=== PATIENT | female | born 1970 | race Caucasian/White ===

== ENCOUNTER 2017-06-03 18:34 | Emergency (ER) | payer OTHER ==
[2017-06-03] MEDS ORDERED: Morphine INJ* 2 MG/ML 1 ML SYRINGE IV ONE ×2 (18:55→23:03)
[2017-06-03] MEDS ORDERED: Ondansetron INJ* 2 MG/ML VIAL ONE (19:02)
[2017-06-03] MEDS ORDERED: Ondansetron INJ* 2 MG/ML VIAL IV ONE ×2 (19:02→20:46)
--- NOTE | 2017-06-03 19:50 | RAD ---
Indication: RIGHT ankle and leg pain post fall from horse. Comparison: No relevant prior exams available on the [facility] PACS for comparison. Technique: AP and crosstable lateral views RIGHT lower leg. AP, lateral, and oblique views RIGHT ankle. Report: Oblique coronal oriented fracture through the lateral malleolus terminating inferiorly at the level of the ankle mortise. Approximate 1 cortex width lateral displacement. Increased medial joint space at the talocrural joint. Posterior lateral tibial plafond and fracture with approximate 2 mm cephalad and 5 mm posterior displacement. Negative for more proximal fibula or tibia fracture on the lower leg exam. Soft tissue swelling about the lower leg and ankle most marked over the medial and lateral malleoli. IMPRESSION: Fuller type B 3 fracture pattern with lateral malleolus, posterolateral tibial plafond and, and stigmata of deltoid ligament tear. Significant medial talocrural joint space widening. Negative for more proximal tibia or fibula fracture.
--- NOTE | 2017-06-03 19:50 | RAD ---
Indication: RIGHT ankle and leg pain post fall from horse. Comparison: No relevant prior exams available on the [facility] PACS for comparison. Technique: AP and crosstable lateral views RIGHT lower leg. AP, lateral, and oblique views RIGHT ankle. Report: Oblique coronal oriented fracture through the lateral malleolus terminating inferiorly at the level of the ankle mortise. Approximate 1 cortex width lateral displacement. Increased medial joint space at the talocrural joint. Posterior lateral tibial plafond and fracture with approximate 2 mm cephalad and 5 mm posterior displacement. Negative for more proximal fibula or tibia fracture on the lower leg exam. Soft tissue swelling about the lower leg and ankle most marked over the medial and lateral malleoli. IMPRESSION: Fuller type B 3 fracture pattern with lateral malleolus, posterolateral tibial plafond and, and stigmata of deltoid ligament tear. Significant medial talocrural joint space widening. Negative for more proximal tibia or fibula fracture.
[2017-06-03] MEDS ORDERED: Morphine INJ* 4 MG/ML 1 ML SYRINGE IV ONE (20:45)
--- NOTE | 2017-06-03 22:06 | RAD ---
Indication: Post reduction Fuller type B 3 ankle injury. Comparison: No relevant prior exams available on the [facility] for comparison. Technique: AP, mortise, and lateral views RIGHT ankle. REPORT AND IMPRESSION: Overlying splint limits image quality. Persistent significant medial joint space widening. Unchanged alignment at the lateral malleolus and posterolateral tibial plafond fractures.
--- NOTE | 2017-06-03 22:08 | RAD ---
Indication: Post reduction Fuller type B 3 ankle injury. Comparison: Prereduction exam of the same date. Technique: AP and crosstable lateral views RIGHT lower leg. REPORT AND IMPRESSION: Interpreted in correlation with the post reduction ankle exam. No significant change in malalignment at the lateral malleolus and posterolateral tibial plafond fractures and talocrural joint compared with the prereduction exam. No more proximal fracture of the tibia or fibula evident.
[2017-06-03] MEDS ORDERED: Lidocaine 1% INJ* 10 MG/ML 30 ML SDV ONE (22:48)
[2017-06-03] MEDS ORDERED: Lidocaine 1%* 5 ML VIAL INJ ONE (22:49)
[2017-06-03] MEDS ORDERED: Morphine INJ* 4 MG/ML 1 ML SYRINGE ONE (23:05)
--- NOTE | 2017-06-03 23:54 | ED ---
Lower Extremity - HPI Summary HPI Summary: Patient presents to the ED with CC of right ankle and foot pain after jumping from a horse and landing on her right foot. She is unable to ambulate. NV exam intact at arrival to ED. There is ecchymosis over the medial ankle with medial and lateral ankle swelling. She notes to some numbness and tingling. Denies hitting her head or LOC. Denies other symptoms at this time. Pain is 7/ 10, worse with movement and better with rest and ice. Thorough physical exam was performed, focusing on ankle special tests. Pain on palpation over medial and lateral aspect and superior aspect of ankle over ATFL and deltoid ligaments. Deltoid ligament with crepitus. Due to patient pain around injury, physical exam was limited. Unable to perform anterior drawer test or talar tilt test d/t pain. Almaguer test negative. Limited ROM. Dorsiflexion, great toe extension and plantar flexion intact however limited. Pain on palpation over medial or lateral lower extremity. No pain with knee flexion. Pulses intact bilaterally. No temperature change or pallor noted bilaterally. Ecchymosis and swelling noted. No lesion or disruption of skin is seen. Unable to bear weight. - History of Current Complaint Chief Complaint: EDExtremityLower Stated Complaint: RT ANKLE INJURY Time Seen by Provider: 06/03/17 18:50 Hx Obtained From: Patient Mechanism Of Injury: Blunt Trauma Onset of Pain: Immediate Onset/Duration: Hours Severity Initially: Moderate Severity Currently: Moderate Pain Intensity: 8 Pain Scale Used: 0-10 Numeric Timing: Constant Location: Is Discrete @ - right medial and lateral ankle pain Associated Signs And Symptoms: Positive: Bruising Aggravating Factor(s): Standing, Ambulation, Movement, Weight Bearing Alleviating Factor(s): Rest, Elevation Able to Bear Weight: No - Risk Factors Gout Risk Factors: Negative DVT Risk Factors: Negative Septic Arthritis Risk Factor: Negative - Allergies/Home Medications Allergies/Adverse Reactions: Allergies Allergy/AdvReac Type Severity Reaction Status Date / Time Shellfish Allergy Allergy Severe ANAPHYLACTI Verified 08/17/14 11:06 C Iodine Allergy SEVERE Verified 08/17/14 11:06 ALLERGY TO SHELLFISH PMH/Surg Hx/FS Hx/Imm Hx Previously Healthy: Yes Respiratory History: Reports: Other Respiratory Problems/Disorders - HX OF BRONCHOSPASMS History: Reports: Hx Kidney Infection - HX OF NONE RECENTLY, Other Problems/Disorders - HX OF BLADDER INFECTIONS- NONE RECENTLY Musculoskeletal History: Reports: Hx Bursitis - OCCASIONALLY IN LEFT HIP Sensory History: Reports: Hx Contacts or Glasses - INSTRUCTS GIVEN Denies: Hx Hearing Aid Opthamlomology History: Reports: Hx Contacts or Glasses - INSTRUCTS GIVEN Neurological History: Reports: Hx Migraine - HX OF- NONE RECENTLY Psychiatric History: Reports: Hx Depression - ON MEDICATION FOR - Cancer History Hx Chemotherapy: No Hx Radiation Therapy: No - Surgical History Surgery Procedure, Year, and Place: 2002 LEFT maxillary nasal fistula-[facility] [place]. 2005 - RIGHT KNEE ARTHROSCOPY-[facility] [place]. 2012-BONE GRAFT JAW-. 2 GUM GRAFTS DONE Hx Anesthesia Reactions: No - Immunization History Hx Pertussis Vaccination: No Immunizations Up to Date: Unable to Obtain/Confirm Infectious Disease History: No Infectious Disease History: Denies: Traveled Outside the [place] in Last 30 Days - Social History Occupation: Employed Full-time Lives: With Family Alcohol Use: Occasionally Hx Substance Use: No Substance Use Type: Reports: None Hx Tobacco Use: No Smoking Status (MU): Never Smoked Tobacco Review of Systems Constitutional: Negative Eyes: Negative Cardiovascular: Negative Respiratory: Negative Genitourinary: Negative Positive: no symptoms reported, see HPI Positive: Arthralgia, Myalgia - right ankle pain Positive: Bruising Neurological: Negative All Other Systems Reviewed And Are Negative: Yes Physical Exam Triage Information Reviewed: Yes Vital Signs On Initial Exam: Initial Vitals Temp Pulse Resp BP Pulse Ox 97.9 F 75 18 118/67 100 06/03/17 18:41 06/03/17 18:41 06/03/17 18:41 06/03/17 18:41 06/03/17 18:41 Completion Of Physical Exam Limited Due To: Dementia Appearance: Positive: Well-Appearing, Well-Nourished Skin: Positive: Warm, Skin Color Reflects Adequate Perfusion, Other - ecchymosis over medial ankle Head/Face: Positive: Normal Head/Face Inspection Eyes: Positive: EOMI, SUZI, Conjunctiva Clear Neck: Positive: Supple, No Lymphadenopathy Respiratory/Lung Sounds: Positive: Clear to Auscultation, Breath Sounds Present Cardiovascular: Positive: Normal, RRR, Pulses are Symmetrical in both Upper and Lower Extremities Musculoskeletal: Positive: Pain @ - medial and lateral ankle pain Neurological: Positive: Sensory/Motor Intact, Alert, Oriented to Person Place, Time, Speech Normal Psychiatric: Positive: Normal Diagnostics - Vital Signs Vital Signs Temp Pulse Resp BP Pulse Ox 06/03/17 23:05 22 06/03/17 20:51 18 06/03/17 18:59 20 06/03/17 18:41 97.9 F 75 18 118/67 100 - Laboratory Lab Statement: Any lab studies that have been ordered have been reviewed, and results considered in the medical decision making process. Lower Extremity Course/Dx - Course Course Of Treatment: Patient evaluated for acute injury of the right ankle. IV obtained. Morphine 4mg given. Xray shows: IMPRESSION: Fuller type B 3 fracture pattern with lateral malleolus, posterolateral tibial plafond and, and stigmata of deltoid ligament tear. Significant medial talocrural joint. space widening. Negative for more proximal tibia or fibula fracture. Upon attempt at mild reduction of the talocrural joint with external rotation of the hip, inversion of the right ankle while pulling anterior on the great toe, a plaster splint was placed. Post reduction films showed no changes of the widening of the joint. Spoke with Dr. Cr who agrees to come to ED. Dr. Cr was able to inject 10cc Lidocaine into the joint space for local anesthetic, she was given 4mg IV morphine just prior to reduction. Plaster splint was placed by Dr. Cr. Post reduction films ordered: CT. She will follow up next week. Crutches given. Pain management given. - Diagnoses Differential Diagnosis/HQI/PQRI: Positive: Contusion, Fracture (Closed), Fracture (Open) Provider Diagnoses: Ankle fracture Discharge - Discharge Plan Condition: Stable Disposition: HOME Prescriptions: oxyCODONE/Acetamin 10/325(NF) [Percocet 10/325 (NF)] 1 tab PO Q6H #16 tab MDD 4 Patient Education Materials: Ankle Fracture (ED) Referrals: Ramon Cr MD [Medical Doctor] - Noemi Parra MD [Primary Care Provider] - Additional Instructions: Follow up with ortho next week Call tomorrow for appt Crutches given for ambulation Keep elevated Ibuprofen 600mg three times daily for pain For breakthrough pain, you may take the percoset on opposite schedule of the ibuprofen
[2017-06-04] MEDS ORDERED: HYDROcodone/ACETAMIN 5-325 MG* 1 TAB PO ONE (00:33)
[2017-06-04 01:36] VITALS: BP 141/74
--- NOTE | 2017-06-04 01:55 | CONS ---
CONSULTATION REPORT: DATE OF CONSULTATION: 06/03/17 - EMERGENCY DEPT REASON FOR CONSULT: Right ankle injury. 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 on 06/03/17. The patient fell off the horse, injured her ankle, sustained no other injuries, and presented to the [facility] Emergency Department with a complaint of pain, swelling, and deformity of the right ankle. X-rays demonstrated a fracture, both of the lateral malleolus and the posterior malleolus, with a lateral talar shift. ER staff reduced the ankle and placed a splint. Post-reduction film showed some residual lateral talar translation. I was consulted regarding the fracture. The patient has received IV pain medication. Is in some discomfort. No prior history of right ankle injuries. PAST MEDICAL HISTORY: Question of depression. PAST SURGICAL HISTORY: Right knee arthroscopy with excision of medial plica, oral surgery, sinus surgeries. MEDICATIONS: 1. Lexapro. 2. Oral contraceptive medication. ALLERGIES: ERYTHROMYCIN (reaction not stated). REVIEW OF SYSTEMS: No fever, sweats, or chills. No chest pain. No shortness of breath. No heart palpitations. No other joint pain. No loss of consciousness or head or neck trauma with fall. PHYSICAL EXAM: Vitals: Temperature 97.9 degrees Fahrenheit, pulse 75, blood pressure 118/67, O2 sat 100% on room air, respiratory rate 18. In no acute distress. Alert and oriented x3. Appropriate mood and affect. Appropriate dress and hygiene. Gait not assessed as the patient is on a stretcher. Well-coordinated bilateral upper and lower extremities. Right ankle shows significant soft tissue swelling, moderate in grade globally about the ankle. There is barely wrinkling about the medial and lateral ankle. Neurovascularly intact distally. Tenderness to palpation about the ankle globally, but specifically about the lateral malleolus and posterior ankle. Did not test strength or passive range of motion because this was clearly causing pain, with either of those maneuvering or testings. DIAGNOSTIC STUDIES/LAB DATA: Imaging: Three x-ray views of the right ankle were reviewed, both pre and post-original reduction. This showed lateral malleolus fracture ending distally at the level of the tibiotalar joint, oblique. There is also a clear posterior malleolus fracture fragment. It appears to involve only approximately a 1 to 2 mm of the joint surface posteriorly, but the fragment may be larger than that as it appears to be posterolateral and not straight posterior. There is some minimal superiorization and posteriorization of that fracture fragment. The medial clear space was proximally 8 mm both pre and post-reduction. ASSESSMENT: Right ankle fracture, displaced, lateral malleolus and posterior malleolus. PLAN: 1. To try to attempt to obtain an improved ankle reduction to reduce soft tissue swelling and expedite the timing of surgery, decided to come in to attempt to reduction. 2. PROCEDURE: Closed reduction/manipulation of the ankle fracture and splint placement. Verbal consent, sterile technique, tolerated well. 6 cc of lidocaine, 1%, without epinephrine, placed into the ankle joint. We then returned 10 minutes later. Performed ankle reduction maneuver and placed a posterior splint with sugar-tong medial and lateral. 3. Obtain post-reduction radiographs. They are pending. 4. Instructions for the patient to use crutches, be nonweightbearing, use ice and elevate the ankle constantly. 5. The patient will follow up with me in the office next week, sometime on Wednesday or Wednesday, the or 09 of June. We will discuss timing of surgery. 6. The patient knows she will require ankle fracture open reduction internal fixation surgery. 7. As the patient's posterior malleolus fracture appears posterolateral and she is a younger patient, I am going to obtain a CT scan of the right ankle to better visualize that posterior fracture fragment. This is on the off chance that it would benefit from fracture fixation posteriorly. [id number]/[facility] #: [id number] [facility]
--- NOTE | 2017-06-04 07:59 | RAD ---
INDICATION: Traumatic fracture of the right ankle, status post external reduction. COMPARISON: Comparison is made with prior x-ray studies of the right ankle from June 03, 2017. TECHNIQUE: Contiguous axial sections were obtained of the right ankle. Images were reconstructed in the sagittal and coronal planes. FINDINGS: There is diffuse soft tissue swelling present. The patient is in a plaster splint. There is an oblique slightly comminuted fracture of the distal metaphysis of the fibula extending to the ankle joint. The major distal fragment is displaced posteriorly approximately 1 cortical diameter and laterally approximately 1 cortical diameter. There is a fracture of the posterior malleolus which extends to the articular margin. This fracture involves approximately 15% of the articular surface. The fracture fragment is minimally distracted. There is widening of the medial ankle mortise. IMPRESSION: 1. OBLIQUE SLIGHTLY DISPLACED INTRA-ARTICULAR FRACTURE OF THE DISTAL FIBULA. 2. MINIMALLY DISPLACED INTRA-ARTICULAR FRACTURE OF THE POSTERIOR MALLEOLUS. 3. WIDENING OF THE MEDIAL ANKLE MORTISE.
== END 2017-06-04 01:34 | disposition home or self-care (01) ==
LOC: ED 18:34
DX: S82.891A Other fracture of right lower leg, initial encounter for closed fracture (principal); M79.671 Pain in right foot; W17.89XA Other fall from one level to another, initial encounter; Y93.52 Activity, horseback riding; Y92.89 Other specified places as the place of occurrence of the external cause
CPT/HCPCS: 96374; 96375; 99282; J2001; J2270; J2405

== ENCOUNTER 2017-06-14 10:40 | Day surgery (SDC) | payer OTHER ==
--- NOTE | 2017-06-09 14:21 | HP ---
PREOPERATIVE HISTORY AND PHYSICAL: DATE OF ADMISSION: 06/14/17 PROVIDER: Rodo Rod MD * (DICTATED BY SOLIS SERVIN) CHIEF COMPLAINT: Right ankle injury. HISTORY OF PRESENT ILLNESS: Ms. Jeffry Mccarty is a 46-year-old female who presents to the office with complaints of a right ankle injury that she sustained on 06/03/17. She states that she was riding her horse and the horse turned towards the right and the patient fell off towards the left. She states that she tried to hold on for a little bit and then ended up falling off, she tried landing on bilateral feet; however, the right ankle seemed to fold underneath her. She states that she noticed a deformity and swelling and pain in the ankle immediately, she was taken to [facility] Emergency Room where x-rays were obtained. She underwent close reduction of the ankle by Dr. Cr and was splinted. She also underwent a CT scan to further evaluate the fracture fragments. She was advised that surgical intervention would give her the best result for healing appropriately and she would like to proceed. PAST MEDICAL HISTORY: Asthma and depression. PAST SURGICAL HISTORY: Right knee arthroscopy in 2004, bone graft from her jaw in 2014, maxillofacial surgery in 2000 and 2015. She reports no complications with anesthesia with those procedures. CURRENT MEDICATIONS: 1. Lexapro 10 mg daily. 2. control pill daily. 3. Multivitamin daily. ALLERGIES: ERYTHROMYCIN, which causes rash. She is also allergic to LATEX. FAMILY HISTORY: Positive for skin cancer in her mother. Negative for diabetes , heart disease, or high blood pressure. SOCIAL HISTORY: She lives with her . 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 She denies tobacco use. She denies alcoholic beverages. She exercises regularly and enjoys horseback riding. REVIEW OF SYSTEMS: Constitutional: Negative for fevers, chills, or night sweats. HEENT: Negative for blurred or double vision, sore throat, runny nose, frequent nosebleeds or hearing changes. Cardiovascular: Negative for chest pain or heart palpitations. Respiratory: Negative for shortness of breath or cough. Gastrointestinal: Negative for nausea, vomiting, or diarrhea. Positive for constipation due to Percocet. Genitourinary: Negative for urinary tract infections or kidney stones. Musculoskeletal: Positive for chronic back pain and the right ankle fracture. Neurologic: Negative for dizziness, lightheadedness or peripheral neuropathy or weakness. Skin: Negative for rashes, lesions, lumps or sores. Endocrine: Negative for weight loss, weight gain or fatigue. Hematology: Positive for easy bleeding or bruising. Allergic : Positive for seasonal allergies and hay fever. Psychiatric: Positive for depression. PHYSICAL EXAMINATION GENERAL: She is a well-developed, well-nourished pleasant female in no acute distress at rest. She is alert and oriented x3, with appropriate mood and affect. VITAL SIGNS: The patient is 5 feet 9 inches, 240 pounds. Blood pressure 130/84 , temperature 98.1, pulse is 78. HEENT: Normocephalic and atraumatic. Hearing and vision are grossly intact. NECK: Her trachea is midline. RESPIRATORY: Lungs clear to auscultation bilaterally. No wheezes, rales, or rhonchi. CARDIOVASCULAR: Regular rate and rhythm. No murmurs, rubs or gallops. Normal S1 and S2. ABDOMEN: Soft, nondistended, nontender. Normal bowel sounds. EXTREMITIES: Exam of the right lower extremity, splint was taken down. Skin is intact without abrasions or open wounds. There is no fracture blistering apparent. There is moderate edema throughout the ankle and dorsum of the foot. There is ecchymosis at the medial and lateral aspects of the heel, plantar aspect of the medial arch. She is tender to palpation around the medial and lateral aspects of the ankle. She is nontender over the dorsal midfoot, Lisfranc joint and into the forefoot. She is also nontender at the proximal fibula. She is able to slightly flex and extend her MTP joints. Her sensation to light touch is intact. She has a 2+ dorsalis pedis pulse. IMAGING: CT scan of the right lower extremity was reviewed from [facility] and shows a displaced distal fibula fracture with widening of the ankle mortis. There is also a nondisplaced fracture of the posterior malleolus. IMPRESSION: Right ankle bimalleolar fracture. PLAN: The patient is to undergo right ankle open reduction and internal fixation by Dr. Rod on 06/14/17. The risks, benefits, and postoperative course were discussed with the patient at length and she would like to proceed. A prescription for oxycodone was sent to her pharmacy for postoperative pain. She is encouraged to elevate the foot frequently to help reduce swelling prior to surgery. We will follow up the patient on the postoperative day. SOLIS SERVIN [id number]/[facility] #: [id number] [facility]
[~2017-06-14 10:40] MED LIST: Buffered Lidocaine 0.9% SYRIN* 5 ML/SYR SYRINGE INTRADERM ONE; Buffered Lidocaine 0.9% SYRIN* 5 ML/SYR SYRINGE ONE; ceFAZolin 2 GM PREMIX (*) 50 ML IVPB ONE
[2017-06-14] MEDS ORDERED: fentaNYL* 50 MCG/ML 2 ML VIAL (100 MCG VIAL) ONE (11:15)
[2017-06-14] MEDS ORDERED: Midazolam* 1 MG/ML 2 ML VIAL (2 MG) ONE ×2 (11:16→12:24)
[2017-06-14] MEDS ORDERED: Bupivacaine 0.5% SDV PF* 30 ML VIAL ONE (11:56)
[2017-06-14] MEDS ORDERED: Chloroprocaine 2%* 20 ML VIAL ONE (12:04)
[2017-06-14] MEDS ORDERED: Propofol* 10 MG/ML 20 ML BTL IV PUSH ONE (12:44)
[2017-06-14] MEDS ORDERED: Dexamethasone IV* 4 MG/ML 1 ML (4 MG) ONE (12:44)
[2017-06-14] MEDS ORDERED: Famotidine IV* 10 MG/ML 2 ML (20 mg) ONE (12:44)
[2017-06-14] MEDS ORDERED: Ketorolac INJ* 30 MG/ML 1 ML VIAL ONE (12:44)
[2017-06-14] MEDS ORDERED: Lidocaine 2% PF * 5 ML VIAL ONE (12:44)
[2017-06-14] MEDS ORDERED: diPHENhydraMINE IV* 50 MG/ML 1 ml VIAL (BENADRYL) ONE (12:50)
[2017-06-14] MEDS ORDERED: HYDROmorphone INJ* 1 MG/ML CARPUJECT SYRINGE IV PRN (12:54)
[2017-06-14] MEDS ORDERED: Acetaminophen TAB* 325 MG PO PRN (12:54)
[2017-06-14] MEDS ORDERED: Levalbuterol 0.63MG/3ML NEB* UNIT OF USE INH PRN (12:54)
[2017-06-14] MEDS ORDERED: DiMENhydriNATE IV* 50 MG/ML VIAL IV PUSH PRN (12:54)
[2017-06-14] MEDS ORDERED: fentaNYL* 50 MCG/ML 2 ML VIAL (100 MCG VIAL) IV PRN (12:54)
[2017-06-14] MEDS ORDERED: Ondansetron INJ* 2 MG/ML VIAL IV PRN (12:54)
[2017-06-14] MEDS ORDERED: HYDROmorphone INJ* 1 MG/ML CARPUJECT SYRINGE ONE (13:38)
[2017-06-14] MEDS ORDERED: oxyCODONE/Acetamin 5/325 MG* TAB ONE (14:48)
[2017-06-14] MEDS: oxyCODONE/Acetamin 5/325 MG* TAB PO PRN ×2 (14:48→14:49)
[2017-06-14 15:24] VITALS: BP 135/79
--- NOTE | 2017-06-14 20:35 | RAD ---
INDICATION: Right ankle ORIF right ankle injury COMPARISONS: June 03, 2017 TECHNIQUE: Fluoroscopy was provided for a surgical procedure. Total fluoroscopy time is: 12 seconds FINDINGS: Spot images demonstrate internal fixation of the ankle IMPRESSION: FLUOROSCOPY WAS PROVIDED FOR A SURGICAL PROCEDURE CPT II Codes: 6045F
--- NOTE | 2017-06-15 08:41 | OP ---
DATE OF OPERATION: 06/14/17 [facility] DATE OF : 72 ATTENDING SURGEON: Rodo Rod MD LABORATORY ASST: Fifi Harrison PA-C. ANESTHESIOLOGIST: Dr. Silverio ANESTHESIA: Spinal PRE-OP DIAGNOSIS: Right fibular fracture, Fuller B displacement. POST-OP DIAGNOSIS: Right fibular fracture, Fuller B displacement with retained pin in the fibular canal. OPERATIVE PROCEDURE: ORIF right fibula with retrieval of broken K-wire. DESCRIPTION OF PROCEDURE: The patient was taken to the operating room where a longitudinal incision was made long the distal fibula. The reduction of the slightly comminuted Fuller B fracture was obtained with the crab claw clamp, and then we pinned this longitudinally with a C-wire. We then fashioned a 7-hole one-third tubular plate along the posterior aspect of the fibula. Back to front cortical screws were placed x2 through the plate with the fragment well reduced. We then tried to remove the K-wire from the end of the fibula, but found this broken off. Because of her zac allergy, we felt we had to retrieve this stainless steel pin. First we took down the fracture site and tried to twist the pin out at this level where it had broken off, but then this again broke off another inch higher up. So, I used the 2 mm power vickey to create a trough along the posterior aspect of the fibula and this allowed me to retrieve the rest of the K-wire. We then switched to a longer plate which was fixed along the posterior aspect of the fibula. Back to front cortical screws were placed, this spanned all of the defect in the fibular and reduced the fragments anatomically. There was a small to low fragment at the anterolateral aspect which was fixed with an additional one-third tubular plate. We irrigated the wounds thoroughly, closing with Vicryl and alaina for the skin, and a compression dressing plaster splint applied. [id number]/[facility] #: [id number] [facility]
== END 2017-06-14 15:48 | disposition home or self-care (01) ==
LOC: OR 10:40
PROVIDERS: ATTEND Orthopaedic Surgery
DX: S82.61XA Displaced fracture of lateral malleolus of right fibula, initial encounter for closed fracture (principal); V80.010A Animal-rider injured by fall from or being thrown from horse in noncollision accident, initial encounter; J45.909 Unspecified asthma, uncomplicated; F32.9 Major depressive disorder, single episode, unspecified; Z88.1 Allergy status to other antibiotic agents; F41.9 Anxiety disorder, unspecified; Y92.9 Unspecified place or not applicable
CPT/HCPCS: 62323; 76000; 81025; A9270-GY; C1713; C1776; J0690; J1100; J1170; J1200; J1885; J2250; J2400; J2704; J3010

== ENCOUNTER 2017-11-09 13:08 | Emergency (ER) | payer OTHER ==
[2017-11-09 15:05] VITALS: BP 134/94
--- NOTE | 2017-11-09 18:55 | UC ---
Wendy García Julia, scribed for Vicente Maurice MD on 11/09/17 at 1539 . HPI Febrile Illness - HPI Summary HPI Summary: This patient is a 47 year old F presenting to [facility] [place] with a chief complaint of fever and body for the past five days, but now worsened with productive cough. Patient reports chills, productive cough with greenish brown sputum, chest congestion, LEON, ear pain, and upper teeth pain. The patient rates the pain 6/ 10 in severity. Pt has been medicating with Mucinex and Robitussum PM with mild relief. Pt has hx of exercise induced asthma. - History of Current Complaint Chief Complaint: UCGeneralIllness Time Seen by Provider: 11/09/17 15:20 Hx Obtained From: Patient Hx Last Menstrual Period: 11/07/17 Onset/Duration: Started Days Ago, Still Present, Worse Since - yesterday Timing: Constant Pain Intensity: 6 Pain Scale Used: 0-10 Numeric Alleviating Factors: Other: - medication Associated Signs and Symptoms: Other: - chills, productive cough with greenish brown sputum, chest congestion, LEON, ear pain, and upper teeth pain - Allergy/Home Medications Allergies/Adverse Reactions: Allergies Allergy/AdvReac Type Severity Reaction Status Date / Time MS Bee Venom [Bee Venom] Allergy Severe Anaphylatic Verified 11/09/17 15:05 Shock MS Shellfish Allergy Allergy Severe ANAPHYLACTI Verified 11/09/17 15:05 [Shellfish Allergy] C MS Erythromycin Allergy Intermediate Rash And Verified 11/09/17 15:05 [Erythromycin] Itching MS Latex [Latex] Allergy Intermediate Rash And Verified 11/09/17 15:05 Itching MS Nickel [Nickel] Allergy Intermediate Rash And Verified 11/09/17 15:05 Itching MS Iodine [Iodine] Allergy SEVERE Verified 11/09/17 15:05 ALLERGY TO SHELLFISH KIWI AdvReac Intermediate See Comment Uncoded 11/09/17 15:05 PMH/Surg Hx/FS Hx/Imm Hx - Surgical History Surgical History: Yes Surgery Procedure, Year, and Place: 2001 LEFT MAXILLARY NASAL FISTULA, [place] GRAFT [place] [place]- RIGHT KNEE ARTHROSCOPY[place] [place]. [place]UM GRAFT- 2009- [place]. 2011 -BONE GRAFT OF [place]. 2014 SINUS SURGERY- [facility] [place]. orif ankle reduction 2016 - Family History Known Family History: Negative: Cardiac Disease, Diabetes - Social History Alcohol Use: Occasionally Alcohol Amount: 1 DRINK EVERY 3 WEEKS Substance Use Type: Excessive Caffeine Substance Use Comment - Amount & Last Used: DRINKS 64 OZ OF DIET COKE/DAY Smoking Status (MU): Never Smoked Tobacco Have You Smoked in the Last Year: No Review of Systems Constitutional: Fever, Chills ENT: Dental Pain, Sore Throat, Ear Ache Respiratory: Cough - and chest congestion, Other - LEON Musculoskeletal: Myalgia - body aches All Other Systems Reviewed And Are Negative: Yes Physical Exam Triage Information Reviewed: Yes Vital Signs: Initial Vital Signs Temp 97.4 F 11/09/17 14:59 Pulse 82 11/09/17 14:59 Resp 18 11/09/17 14:59 BP 134/94 11/09/17 14:59 Pulse Ox 100 11/09/17 14:59 Vital Signs Reviewed: Yes - Additional Comments General: mild ill appearing, no pain distress Skin: warm, color reflects adequate perfusion, dry Head: normal Eyes: EOMI, SUZI ENT: rhinorrhea, mild posterior pharynx erythema Neck: supple, nontender Respiratory: CTA, breath sounds present Cardiovascular: RRR Abdomen: soft, nontender Bowel: present Musculoskeletal: normal, strength/ROM intact Neurological: normal, sensory/motor intact, A&O x3 Psychological: affect/mood appropriate Course/Dx - Course Course Of Treatment: BP noted and advised to follow up with PCP - Diagnoses Clinic Provider Diagnoses: BRONCHITIS Discharge - Discharge Plan Condition: Stable Disposition: HOME Prescriptions: Azithromycin TAB* [Zithromax TAB (Z-JAIME) 250 mg #6 tabs] 2 tab PO .TODAY, THEN 1 DAILY #1 jaime guaiFENesin/CODIEN 100MG-10MG* [Robitussin AC 100Mg-10Mg*] 10 ml PO Q6H PRN # 120 ml MDD 40 PRN Reason: Cough Patient Education Materials: Acute Bronchitis (ED) Forms: *Work Release Referrals: Noemi Parra MD [Primary Care Provider] - Additional Instructions: Your blood pressure was elevated during todays visit; please follow up with your primary care provider within a week for further evaluation. The documentation as recorded by the Wendy duke Julia accurately reflects the service I personally performed and the decisions made by me, Vicente Maurice MD.
== END 2017-11-09 15:45 | disposition home or self-care (01) ==
LOC: UCEAST 13:08
DX: J40 Bronchitis, not specified as acute or chronic (principal); Z88.1 Allergy status to other antibiotic agents; Z88.3 Allergy status to other anti-infective agents; Z91.030 Bee allergy status; Z91.040 Latex allergy status; Z91.013 Allergy to seafood
CPT/HCPCS: 99212; G0463

== ENCOUNTER 2018-07-04 08:11 | Day surgery (SDC) | payer OTHER ==
[~2018-07-04 08:11] MED LIST changes: -Buffered Lidocaine 0.9% SYRIN* 5 ML/SYR SYRINGE ONE; +Morphine VIAL* 10 MG/ML 1 ML VIAL ONE; -ceFAZolin 2 GM PREMIX (*) 50 ML IVPB ONE; +ceFAZolin 2 GM in NS PREMIX(*) 2 GM/100 ML BAG IVPB ONE
[2018-07-04] MEDS ORDERED: Midazolam* 1 MG/ML 5 ML VIAL (5 MG) ONE (10:05)
[2018-07-04] MEDS ORDERED: fentaNYL* 50 MCG/ML 2 ML VIAL (100 MCG VIAL) ONE (10:05)
[2018-07-04] MEDS ORDERED: Propofol* 10 MG/ML 20 ML BTL IV PUSH ONE (10:20)
[2018-07-04] MEDS ORDERED: Bupivacaine 0.5% SDV PF* 30ML VIAL ONE (10:34)
[2018-07-04] MEDS ORDERED: Bupivacaine 0.25% SDV* 30 ML ONE (10:34)
[2018-07-04] MEDS ORDERED: Naloxone* 0.4 MG/ML 1 ML VIAL IV PRN (11:05)
[2018-07-04] MEDS ORDERED: Chloroprocaine 2%* 20 ML VIAL ONE (11:37)
[2018-07-04] MEDS ORDERED: oxyCODONE TAB* 5 MG TAB ONE (11:46)
[2018-07-04 12:49] VITALS: BP 129/80
--- NOTE | 2018-07-04 21:49 | OP ---
DATE OF OPERATION: 07/04/18 - [facility] DATE OF : 72 SURGEON: Rodo Rod MD MANAGER WIND: Fifi Harrison PA-C PRE-OP DIAGNOSIS: Painful hardware, right fibula. POST-OP DIAGNOSIS: Painful hardware, right fibula. OPERATIVE PROCEDURE: Removal of fibular plate, right ankle. DESCRIPTION OF PROCEDURE: The patient was taken to the operating room where a longitudinal incision was made over the distal right fibula. We incised down along the plate exposing it posteriorly as well. The small fragment screw- local delivery driver was use to remove all the screws from the small and larger plate. We then removed the plates. The fracture itself appeared to be solidly united. We irrigated thoroughly closing with deep sutures of 2-0 Vicryl and a running nylon suture for the skin. A compression dressing was applied. [id number]/[facility] #: [id number] MTDD
== END 2018-07-04 13:18 | disposition home or self-care (01) ==
LOC: OR 08:11
PROVIDERS: ATTEND Orthopaedic Surgery
DX: T84.84XA Pain due to internal orthopedic prosthetic devices, implants and grafts, initial encounter (principal); Y83.1 Surgical operation with implant of artificial internal device as the cause of abnormal reaction of the patient, or of later complication, without mention of misadventure at the time of the procedure; J45.909 Unspecified asthma, uncomplicated; E66.9 Obesity, unspecified; S82.61XD Displaced fracture of lateral malleolus of right fibula, subsequent encounter for closed fracture with routine healing; X58.XXXD Exposure to other specified factors, subsequent encounter; Y92.9 Unspecified place or not applicable
CPT/HCPCS: 81025; 88300; A9270-GY; J0690; J2250; J2270; J2400; J2704; J3010

== ENCOUNTER 2019-04-04 09:31 | Day surgery (SDC) | payer OTHER, BC ==
--- NOTE | 2019-03-27 10:24 | HP ---
PREOPERATIVE HISTORY AND PHYSICAL: DATE OF SURGERY/ADMISSION: 04/04/19 [facility] DATE OF OFFICE VISIT/ENCOUNTER: 03/22/19 ATTENDING SURGEON: Socorro Clay MD.* (DICTATEED BY SOLIS GRIFFIN) PROCEDURE: Mass excision left ring finger. HISTORY OF PRESENT ILLNESS: This is a 48-year-old female who complains of a lump in the palm of her right ring finger. It has been present for quite some time, but it has recently become larger and more bothersome. She cannot wear her ring any more. 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 She denies any injury and denies numbness and tingling, she would like to have the cyst removed. PAST MEDICAL HISTORY: 1. Exercise-induced asthma. 2. Depression. PAST SURGICAL HISTORY: 1. Sinus surgery. 2. Open reduction and internal fixation right ankle in 2017 and subsequent hardware removal in 2018. 3. Right knee arthroscopy. 4. Oral surgery. MEDICATIONS: 1. Escitalopram oxalate 10 mg daily. 2. Ibuprofen 600 mg t.i.d. p.r.n. pain. 3. Levonorgestrel/ethinyl estradiol 0.1/20 mcg daily. 4. ProAir HFA inhaler 2 puffs q.4 hours p.r.n. ALLERGIES: 1. ERYTHROMYCIN causes a rash. 2. LATEX. 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 She denies tobacco use and recreational drug use. She drinks alcohol on rare occasion. REVIEW OF SYSTEMS: Negative for general, cephalic, cardiovascular, respiratory , GI, other musculoskeletal, integumentary, endocrine, neurologic, and hematologic symptoms. Infectious Disease: Negative for MRSA, hepatitis C, HIV. PHYSICAL EXAMINATION GENERAL: Well-developed, well nourished 48-year-old female in on acute distress. VITAL SIGNS: Height 5 feet 9-1/2 inches, weight 240 pounds, blood pressure 130/ 84, pulse rate 91. HEENT: Normocephalic, atraumatic. Pupils are equal, round, and reactive to light and accommodation. Extraocular movements are intact. NECK: Supple. No palpable lymph nodes. Throat is clear. PULMONARY: Lungs are clear to auscultation bilaterally. No wheezes, rales or rhonchi. CARDIOVASCULAR: Regular rate and rhythm. S1, S2. No murmurs, rubs or gallop. No edema. ABDOMEN: Positive bowel sounds, soft, nontender. NEUROLOGIC: Alert and oriented x3. Cranial nerves II through XII are intact. Sensation is intact to light touch. MUSCULOSKELETAL: On exam of her left hand, there is a tender mass at the MP flexion crease of her ring finger. She can fully flex and extend the finger. She has a negative Tinel's sign. Skin is intact. Neurovascular function is intact. IMPRESSION: Left ring finger ganglion cyst. PLAN: The patient is scheduled to undergo a mass excision, left ring finger with Dr. Clay on 04/04/19. She will return to the office in 10 days postop for followup and suture removal. A prescription for Tylenol No. 3 was e- scribed to the patient's pharmacy for postoperative pain management. SOLIS GRIFFIN [id number]/[facility] #: [id number] CHELSEY
[~2019-04-04 09:31] MED LIST changes: -Buffered Lidocaine 0.9% SYRIN* 5 ML/SYR SYRINGE INTRADERM ONE; +Buffered Lidocaine 1% SYRIN* 1 ML/SYRINGE INTRADERM ONE; +Lactated Ringers 1000 ML Bag* 1,000 ML IV SCH; -Morphine VIAL* 10 MG/ML 1 ML VIAL ONE; -ceFAZolin 2 GM in NS PREMIX(*) 2 GM/100 ML BAG IVPB ONE
[2019-04-04] MEDS ORDERED: Propofol* 10 MG/ML 20 ML BTL ONE (10:16)
[2019-04-04] MEDS ORDERED: Lidocaine 2% PF * 5 ML VIAL ONE (10:17)
[2019-04-04] MEDS ORDERED: Midazolam* 1 MG/ML 2 ML VIAL (2 MG) ONE (10:17)
[2019-04-04] MEDS ORDERED: Lidocaine 1% INJ* 10 MG/ML 30 ML SDV ONE (10:29)
[2019-04-04] MEDS ORDERED: fentaNYL* 50 MCG/ML 2 ML VIAL (100 MCG VIAL) ONE (10:59)
[2019-04-04] MEDS ORDERED: KETAMINE HCL* 50 MG/ML 10 ML VIAL ONE (11:01)
[2019-04-04 12:11] VITALS: BP 119/70
--- NOTE | 2019-04-04 14:11 | OP ---
DATE OF OPERATION: 04/04/19 [facility] DATE OF : 72 SURGEON: Socorro Clay MD. PROPERTY MANAGEMENT BOOKKEEPER: SOLIS Jean-Baptiste. ANESTHESIA: Local MAC. PRE-OP DIAGNOSIS: Left ring finger mass. POST-OP DIAGNOSIS: Left ring finger mass. OPERATIVE PROCEDURE: Left ring finger mass excision. ESTIMATED BLOOD LOSS: Zero. TOURNIQUET TIME: About 10 minutes. INDICATIONS FOR PROCEDURE: Noa is a 48-year-old female who has a painful mass overlying the A1 mara of her left ring finger. She presents for removal. DESCRIPTION OF PROCEDURE: The patient was brought to the operating room, was given a sedation anesthetic and a local infiltration of 10 cc of 1% plain lidocaine in the palm of her left hand overlying the mass. Skin of her left hand and forearm was prepped and draped in the usual sterile fashion. The hand and forearm were exsanguinated and the tourniquet elevated to 250 mmHg. A transverse incision was made centered over the mass. We dissected bluntly through the subcutaneous tissue down to the mass, which appeared to be a ganglion cyst emanating from the A1 mara. It was removed with a small portion of the mara and sent for pathology. The remainder of the A1 mara was incised longitudinally releasing the flexor tendons, which were in good condition. The wound was irrigated and the skin edges reapproximated with 4-0 nylon suture. The wound was dressed with Xeroform, 4x4, Webril, and an Jhonathan wrap. The patient tolerated the procedure well and was brought to the recovery room in good condition. [id number]/[facility] #: [id number] [facility] SYSTEM[facility]
== END 2019-04-04 12:00 | disposition home or self-care (01) ==
LOC: OREAST 09:31
PROVIDERS: ATTEND Orthopaedic Surgery
DX: M67.442 Ganglion, left hand (principal); F41.8 Other specified anxiety disorders; K21.9 Gastro-esophageal reflux disease without esophagitis; J45.990 Exercise induced bronchospasm
CPT/HCPCS: 81025; 88305; J2250; J2704; J3010